=== PATIENT | female | born 1950 | race Two or more races ===

== ENCOUNTER 2022-12-20 20:27 | Emergency (ER) | payer OTHER ==
[~2022-12-20] VITALS: Ht 147.3 cm; Wt 44.5 kg
== END 2022-12-20 22:37 | disposition home or self-care (01) ==
LOC: ER 20:27 → EDBD 20:30 → ER 22:37
DX: M54.89 Other dorsalgia (principal); S30.0XXA Contusion of lower back and pelvis, initial encounter; S80.12XA Contusion of left lower leg, initial encounter; W18.30XA Fall on same level, unspecified, initial encounter; Y93.89 Activity, other specified; Y92.59 Other trade areas as the place of occurrence of the external cause; Y99.9 Unspecified external cause status; Z88.8 Allergy status to other drugs, medicaments and biological substances